=== PATIENT | male | born 1945 | race Caucasian/White ===

== ENCOUNTER 2017-06-08 16:18 | Emergency (ER) | payer MEDICARE, OTHER ==
--- NOTE | 2017-06-08 16:55 | ED ---
General Adult HPI - General Chief complaint: Psychiatric Symptoms Stated complaint: MENTAL HEALTH Time Seen by Provider: 06/08/17 16:36 Source: EMS, RN notes reviewed Mode of arrival: EMS Limitations: altered mental status - History of Present Illness Initial comments: 71-year-old male who is alert and oriented to person presents to the emergency department on a petition stating that he was trying to hurt himself and throwing himself to the ground. Kidney he denies any suicidal or homicidal ideation. Patient's story changes multiple times during the history. He denies any pain at this time. He denies any thoughts of hurting himself or anyone else. Patient denies any health concerns. Patient denies any recent fever, chills, shortness of breath, chest pain, back pain, abdominal pain, nausea vomiting, numbness or tingling, dysuria or hematuria, constipation or diarrhea, headaches or visual changes, or any other current symptoms. - Related Data Home Medications Medication Instructions Recorded Confirmed Albuterol Inhaler [Ventolin Hfa 2 puff INHALATION RT-BID 06/08/17 06/08/17 Inhaler] Albuterol Inhaler [Ventolin Hfa 2 puff INHALATION RT-Q4H PRN 06/08/17 06/08/17 Inhaler] Ativan 2mg/Ml Injection 1 mg IM Q8H PRN 06/08/17 06/08/17 Atorvastatin [Lipitor] 40 mg PO HS 06/08/17 06/08/17 Cetirizine HCl [Zyrtec] 10 mg PO DAILY 06/08/17 06/08/17 Diltiazem HCl [Cardizem Cd] 360 mg PO DAILY 06/08/17 06/08/17 Docusate [Colace] 100 mg PO BID PRN 06/08/17 06/08/17 Famotidine [Pepcid] 20 mg PO DAILY 06/08/17 06/08/17 Furosemide [Lasix] 20 mg PO DAILY 06/08/17 06/08/17 HYDROcodone/APAP 5-325MG [[place] 1 tab PO BID PRN 06/08/17 06/08/17 5-325] Heparin Sodium,Porcine [Heparin 5,000 unit SQ TID 06/08/17 06/08/17 Sodium] LORazepam [Ativan] 1 mg PO Q8H PRN 06/08/17 06/08/17 Lactulose 20 gm PO BID PRN 06/08/17 06/08/17 Megestrol [Megace] 40 mg PO DAILY 06/08/17 06/08/17 QUEtiapine FUMARATE [SEROquel] 12.5 mg PO HS 06/08/17 06/08/17 Sertraline [Zoloft] 50 mg PO HS 06/08/17 06/08/17 Sotalol [Betapace] 80 mg PO BID 06/08/17 06/08/17 Triamcinolone 0.1% Cream [Kenalog] 1 applicatio TOPICAL BID 06/08/17 06/08/17 levETIRAcetam [Keppra] 1,000 mg PO Q12HR 06/08/17 06/08/17 predniSONE 10 mg PO DAILY 06/08/17 06/08/17 Allergies Allergy/AdvReac Type Severity Reaction Status Date / Time No Known Allergies Allergy Verified 06/08/17 16:33 Review of Systems ROS Statement: Those systems with pertinent positive or pertinent negative responses have been documented in the HPI. ROS Other: All systems not noted in ROS Statement are negative. Past Medical History Past Medical History: Atrial Fibrillation, COPD, Hyperlipidemia, Hypertension, Osteoarthritis (OA) Additional Past Medical History / Comment(s): non-traumatic intracerebral hemorrhage, hemipeligia, foot drop History of Any Multi-Drug Resistant Organisms: Unobtainable Past Surgical History: Unable to Obtain Past Psychological History: Unable to Obtain Smoking Status: Unknown if ever smoked Past Alcohol Use History: Unable to Obtain Past Drug Use History: Unable to Obtain General Exam Limitations: altered mental status (however patient's baseline per EMS and retirement report) Head exam: Present: atraumatic, normocephalic, normal inspection ENT exam: Present: normal exam, mucous membranes moist Neck exam: Present: normal inspection Respiratory exam: Present: normal lung sounds bilaterally. Absent: respiratory distress, wheezes, rales, rhonchi, stridor Cardiovascular Exam: Present: regular rate, normal rhythm, normal heart sounds. Absent: systolic murmur, diastolic murmur, rubs, gallop, clicks Extremities exam: Present: normal inspection, full ROM, normal capillary refill. Absent: tenderness, pedal edema, joint swelling, calf tenderness Back exam: Present: normal inspection Neurological exam: Present: alert Psychiatric exam: Present: normal affect, normal mood Skin exam: Present: warm, dry, intact, normal color. Absent: rash Course Vital Signs 06/08/17 16:32 Temperature 97.4 F L Pulse Rate 55 L Respiratory 20 Rate Blood Pressure 180/80 O2 Sat by Pulse 91 L Oximetry Medical Decision Making - Medical Decision Making 71-year-old male presents on a petition stating he was trying to hurt himself. He denies any thoughts of this. This time the patient does not appear to be suffering from any acute medical emergencies. This time the patient is cleared to be evaluated by psychiatry. at this time patient was evaluated and they are in agreement with discharge back to the nursing facility. Patient continues to deny any suicidal or homicidal ideations. Patient does suffer from memory loss. This and we will discharge the patient. Family is in agreement with plan and comfortable. - Lab Data Result diagrams: 06/08/17 17:04 06/08/17 17:04 Lab Results 06/08/17 06/08/17 06/08/17 Range/Units 17:04 17:04 17:04 WBC 15.8 H (3.8-10.6) k/uL RBC 5.20 (4.30-5.90) m/uL Hgb 16.8 (13.0-17.5) gm/dL Hct 49.5 (39.0-53.0) % MCV 95.3 (80.0-100.0) fL MCH 32.3 (25.0-35.0) pg MCHC 33.9 (31.0-37.0) g/dL RDW 14.4 (11.5-15.5) % Plt Count 385 (150-450) k/uL Neutrophils % 81 % Lymphocytes % 11 % Monocytes % 6 % Eosinophils % 1 % Basophils % 0 % Neutrophils # 12.7 H (1.3-7.7) k/uL Lymphocytes # 1.8 (1.0-4.8) k/uL Monocytes # 0.9 (0-1.0) k/uL Eosinophils # 0.1 (0-0.7) k/uL Basophils # 0.1 (0-0.2) k/uL Sodium 142 (137-145) mmol/L Potassium 4.5 (3.5-5.1) mmol/L Chloride 108 H (98-107) mmol/L Carbon Dioxide 20 L (22-30) mmol/L Anion Gap 14 mmol/L BUN 31 H (9-20) mg/dL Creatinine 1.15 (0.66-1.25) mg/dL Est GFR (MDRD) Af Amer >60 (>60 ml/min/1.73 sqM) Est GFR (MDRD) Non-Af >60 (>60 ml/min/1.73 sqM) Glucose 129 H (74-99) mg/dL Calcium 9.6 (8.4-10.2) mg/dL Total Bilirubin 0.6 (0.2-1.3) mg/dL AST 50 (17-59) U/L ALT 146 H (21-72) U/L Alkaline Phosphatase 67 (38-126) U/L Total Protein 7.7 (6.3-8.2) g/dL Albumin 4.2 (3.5-5.0) g/dL Urine Color Yellow Urine Appearance Clear (Clear) Urine pH 5.0 (5.0-8.0) Ur Specific [place] 1.014 (1.001-1.035) Urine Protein Negative (Negative) Urine Glucose (UA) Negative (Negative) Urine Ketones Negative (Negative) Urine Blood Small H (Negative) Urine Nitrite Negative (Negative) Urine Bilirubin Negative (Negative) Urine Urobilinogen <2.0 (<2.0) mg/dL Ur Leukocyte Esterase Negative (Negative) Urine RBC 1 (0-5) /hpf Urine WBC 1 (0-5) /hpf Urine Bacteria Rare H (None) /hpf Urine Opiates Screen Detected H (NotDetected) Ur Oxycodone Screen Not Detected (NotDetected) Urine Methadone Screen Not Detected (NotDetected) Ur Propoxyphene Screen Not Detected (NotDetected) Ur Barbiturates Screen Not Detected (NotDetected) U Tricyclic Antidepress Not Detected (NotDetected) Ur Phencyclidine Scrn Not Detected (NotDetected) Ur Amphetamines Screen Not Detected (NotDetected) U Methamphetamines Scrn Not Detected (NotDetected) U Benzodiazepines Scrn Detected H (NotDetected) Urine Cocaine Screen Not Detected (NotDetected) U Marijuana (THC) Screen Not Detected (NotDetected) Disposition Clinical Impression: Depression, Memory impairment of gradual onset Disposition: HOME SELF-CARE Condition: Stable Instructions: Depression (ED) Additional Instructions: Please use medication as discussed. Please follow up with family doctor if symptoms have not improved over the next two days. Please return to the emergency room if your symptoms increase or worsen or for any other concerns. Referrals: Dex Sun MD [Primary Care Provider] - 1-2 days Time of Disposition: 20:14
[2017-06-08 17:16] LABS: Basophils # (A) 0.1 k/uL (0-0.2); Basophils % (A) 0 %; CH 33.5; CHCM 35.2; Eosinophils # (A) 0.1 k/uL (0-0.7); Eosinophils % (A) 1 %; HCT 49.5 % (39.0-53.0); HDW 2.29; HGB 16.8 gm/dL (13.0-17.5); Luc # (Auto) 0.24; Luc % (Auto) 2; Lymphocytes # (A) 1.8 k/uL (1.0-4.8); Lymphocytes % (A) 11 %; MCH 32.3 pg (25.0-35.0); MCHC 33.9 g/dL (31.0-37.0); MCV 95.3 fL (80.0-100.0); Mean Platelet Volume 7.6; Monocytes # (A) 0.9 k/uL (0-1.0); Monocytes % (A) 6 %; Neutrophils # (A) 12.7 k/uL (1.3-7.7); Neutrophils % (A) 81 %; RDW 14.4 % (11.5-15.5); WBC 15.8 k/uL (3.8-10.6); WBC (Perox) 15.85
[2017-06-08 17:21] LABS: Appearance,Urine Clear (Clear); Bacteria,Urine Rare /hpf; Bilirubin,Urine Negative (Negative); Glucose,Urine (UA) Negative (Negative); Ketones,Urine Negative (Negative); Leukocyte Esterase,Urine Negative (Negative); Nitrite,Urine Negative (Negative); Particle Count 1603; Protein,Urine Negative (Negative); RBC,Urine 1 /hpf (0-5); Specific Gravity,Urine 1.014 (1.001-1.035); UA Billing (MACRO vs. MICRO) MICRO; Urobilinogen,Urine <2.0 mg/dL (<2.0); WBC,Urine 1 /hpf (0-5)
[2017-06-08 17:23] LABS: ALT 146 U/L (21-72); AST 50 U/L (17-59); Alkaline Phosphatase 67 U/L (38-126); Anion Gap 14 mmol/L; Blood Urea Nitrogen 31 mg/dL (9-20); Calcium 9.6 mg/dL (8.4-10.2); Carbon Dioxide 20 mmol/L (22-30); Chloride 108 mmol/L (98-107); Glucose 129 mg/dL (74-99); Non-African American GFR(MDRD) >60 (>60 ml/min/1.73 sqM); Potassium 4.5 mmol/L (3.5-5.1); Sodium 142 mmol/L (137-145); Total Bilirubin 0.6 mg/dL (0.2-1.3); Total Protein 7.7 g/dL (6.3-8.2)
--- NOTE | 2017-06-08 18:19 | XR ---
EXAMINATION TYPE: XR chest 2V DATE OF EXAM: 06/08/2017 COMPARISON: NONE HISTORY: Cough TECHNIQUE: Frontal and lateral views of the chest are obtained. FINDINGS: There is no heart failure nor confluent pneumonic infiltrate. Heart size is normal. Thorac ic aorta is atheromatous. There is no pleural effusion. There are small linear density along the left major fissure. IMPRESSION: Mild pulmonary fibrosis. Old left-sided healed rib fractures. No acute lung disease.
[2017-06-08 20:51] VITALS: BP 170/68; PULSE 60; RESP 16; TEMP 97.3
== END 2017-06-08 20:51 | disposition home or self-care (01) ==
LOC: EC 16:18
DX: F32.9 Major depressive disorder, single episode, unspecified (principal); R41.3 Other amnesia; R41.82 Altered mental status, unspecified; E78.5 Hyperlipidemia, unspecified; I10 Essential (primary) hypertension; J44.9 Chronic obstructive pulmonary disease, unspecified; I48.91 Unspecified atrial fibrillation; M19.90 Unspecified osteoarthritis, unspecified site; Z79.01 Long term (current) use of anticoagulants; Z79.52 Long term (current) use of systemic steroids; Z79.899 Other long term (current) drug therapy
CPT/HCPCS: 36415; 71020; 80053; 80306; 81001; 82075; 85025; 99284

== ENCOUNTER 2017-07-03 10:41 | Emergency (ER) | payer MEDICARE, OTHER ==
[2017-07-03] MEDS ORDERED: SODIUM CHLORIDE 0.9% 1,000 ML IV ONE ×2 (10:46)
--- NOTE | 2017-07-03 10:53 | ED ---
Fall HPI - General Stated Complaint: Fall Time Seen by Provider: 07/03/17 10:41 Source: patient, EMS - History of Present Illness Initial Comments: This is a 71-year-old male who resides in a [facility] who has a history of dementia also a history of depression who has frequent falls who today fell out of his wheelchair face forward onto the floor. He sustained some abrasions to the left side of his forehead and scalp no reports of neck or back pain no focal loss of function. Patient does have a coma scale of 14 per EMS. No reports of fevers chills nausea vomiting sweats or other symptoms. The patient also complained of some right knee pain. MD Complaint: fall, other - Related Data Home Medications Medication Instructions Recorded Confirmed Albuterol Inhaler [Ventolin Hfa 2 puff INHALATION RT-BID@08,199906/08/1703/14 Inhaler] Albuterol Inhaler [Ventolin Hfa 2 puff INHALATION RT-Q4H PRN 06/08/17 07/03/17 Inhaler] Ativan 2mg/Ml Injection 1 mg IM Q8H PRN 06/08/17 07/03/17 Atorvastatin [Lipitor] 40 mg PO HS@2100 06/08/17 07/03/17 Cetirizine HCl [Zyrtec] 10 mg PO DAILY@89906/08/17 07/03/17 Diltiazem HCl [Cardizem Cd] 360 mg PO DAILY 06/08/17 07/03/17 Docusate [Colace] 100 mg PO BID PRN 06/08/17 07/03/17 Famotidine [Pepcid] 20 mg PO DAILY@0606/08/17 07/03/17 Furosemide [Lasix] 20 mg PO DAILY 06/08/17 07/03/17 HYDROcodone/APAP 5-325MG [[place] 1 tab PO BID PRN 06/08/17 07/03/17 5-325] LORazepam [Ativan] 1 mg PO Q8H PRN 06/08/17 07/03/17 Lactulose 20 gm PO BID PRN 06/08/17 07/03/17 QUEtiapine FUMARATE [SEROquel] 25 mg PO BID@0800,199906/08/17 07/03/17 Sotalol [Betapace] 80 mg PO BID@00,209906/08/17 07/03/17 levETIRAcetam [Keppra] 1,000 mg PO BID@0900,209906/08/17 07/03/17 Mirtazapine [Remeron] 15 mg PO HS@209907/03/17 07/03/17 Previous Rx's Medication Instructions Recorded Cephalexin [Keflex] 500 mg PO Q6HR #40 cap 07/03/17 Allergies Allergy/AdvReac Type Severity Reaction Status Date / Time No Known Allergies Allergy Verified 07/03/17 10:56 Review of Systems ROS Statement: Those systems with pertinent positive or pertinent negative responses have been documented in the HPI. ROS Other: All systems not noted in ROS Statement are negative. Past Medical History Past Medical History: Atrial Fibrillation, COPD, Hyperlipidemia, Hypertension, Osteoarthritis (OA) Additional Past Medical History / Comment(s): non-traumatic intracerebral hemorrhage, hemipeligia, foot drop History of Any Multi-Drug Resistant Organisms: Unobtainable Past Surgical History: Unable to Obtain Past Psychological History: Unable to Obtain Smoking Status: Unknown if ever smoked Past Alcohol Use History: Unable to Obtain Past Drug Use History: Unable to Obtain General Exam - General Exam Comments Initial Comments: A well-developed well-nourished awake alert somewhat lethargic male he does demonstrate abrasions to the left forehead and left frontal temporal scalp no step-off or crepitation no suture repair indicated. The patient does demonstrate a María Coma Scale of 14 Limitations: no limitations General appearance: alert, lethargic Head exam: Present: normocephalic, other (As above) Eye exam: Present: PERRL, EOMI ENT exam: Present: mucous membranes dry Neck exam: Present: normal inspection. Absent: tenderness, meningismus, lymphadenopathy Respiratory exam: Present: normal lung sounds bilaterally. Absent: respiratory distress, wheezes, rales, rhonchi, stridor Cardiovascular Exam: Present: regular rate, normal rhythm, normal heart sounds. Absent: systolic murmur, diastolic murmur, rubs, gallop, clicks GI/Abdominal exam: Present: soft, normal bowel sounds. Absent: distended, tenderness, guarding, rebound, rigid Rectal exam: Present: deferred Extremities exam: Present: full ROM, normal capillary refill, other (A healing scab over the left knee approximately 1.5 cm diameter no active bleeding no step -off or crepitation examination right knee reveals some mild tenderness palpation of the medial aspect the knee no step-off or crepitation.) Back exam: Present: normal inspection Neurological exam: Present: alert, oriented X3, CN II-XII intact Psychiatric exam: Present: normal mood, flat affect Skin exam: Present: warm, dry, normal color. Absent: rash Course Vital Signs 07/03/17 07/03/17 07/03/17 10:51 12:53 14:24 Temperature 99.6 F Pulse Rate 77 71 70 Respiratory 18 18 18 Rate Blood Pressure 125/69 117/63 122/69 O2 Sat by Pulse 89 L 92 L 95 Oximetry 07/03/17 15:17 Temperature 98.3 F Pulse Rate 70 Respiratory 16 Rate Blood Pressure 118/69 O2 Sat by Pulse 93 L Oximetry - Reevaluation(s) Reevaluation #1: 07/03/17 15:05 I proceed a [id number] evaluation the patient did discuss the findings with him and his . Patient does demonstrate epigastric pain to palpation. The findings are consistent with pancreatitis and cholelithiasis. I did discuss case with Dr. Colvin. Medical Decision Making - Medical Decision Making Patient will be discharged he'll be placed on oral antibiotics. - Lab Data Result diagrams: 07/03/17 12:57 07/03/17 12:57 Lab Results 07/03/17 07/03/17 07/03/17 Range/Units 11:02 12:57 12:57 WBC (3.8-10.6) k/uL RBC (4.30-5.90) m/uL Hgb (13.0-17.5) gm/dL Hct (39.0-53.0) % MCV (80.0-100.0) fL MCH (25.0-35.0) pg MCHC (31.0-37.0) g/dL RDW (11.5-15.5) % Plt Count (150-450) k/uL Neutrophils % % Lymphocytes % % Monocytes % % Eosinophils % % Basophils % % Neutrophils # (1.3-7.7) k/uL Lymphocytes # (1.0-4.8) k/uL Monocytes # (0-1.0) k/uL Eosinophils # (0-0.7) k/uL Basophils # (0-0.2) k/uL PT 11.4 (9.0-12.0) sec INR 1.1 (<1.2) APTT 23.4 (22.0-30.0) sec Sodium 141 (137-145) mmol/L Potassium 4.2 (3.5-5.1) mmol/L Chloride 109 H (98-107) mmol/L Carbon Dioxide 21 L (22-30) mmol/L Anion Gap 11 mmol/L BUN 21 H (9-20) mg/dL Creatinine 0.95 (0.66-1.25) mg/dL Est GFR (MDRD) Af Amer >60 (>60 ml/min/1.73 sqM) Est GFR (MDRD) Non-Af >60 (>60 ml/min/1.73 sqM) Glucose 80 (74-99) mg/dL Plasma Lactic Acid Paul (0.7-2.0) mmol/L Calcium 8.7 (8.4-10.2) mg/dL Magnesium 2.0 (1.6-2.3) mg/dL Total Bilirubin 1.4 H (0.2-1.3) mg/dL AST 54 (17-59) U/L ALT 75 H (21-72) U/L Alkaline Phosphatase 80 (38-126) U/L Ammonia (<30) umol/L Total Protein 6.5 (6.3-8.2) g/dL Albumin 3.3 L (3.5-5.0) g/dL Urine Color Yellow Urine Appearance Clear (Clear) Urine pH 6.0 (5.0-8.0) Ur Specific [place] 1.020 (1.001-1.035) Urine Protein 1+ H (Negative) Urine Glucose (UA) Negative (Negative) Urine Ketones Negative (Negative) Urine Blood Moderate H (Negative) Urine Nitrite Positive (Negative) Urine Bilirubin Negative (Negative) Urine Urobilinogen 2.0 (<2.0) mg/dL Ur Leukocyte Esterase Trace H (Negative) Urine RBC 2 (0-5) /hpf Urine WBC 4 (0-5) /hpf Urine Bacteria Rare H (None) /hpf Urine Mucus Rare H (None) /hpf 07/03/17 07/03/17 07/03/17 Range/Units 12:57 12:57 15:14 WBC 11.3 H (3.8-10.6) k/uL RBC 3.82 L (4.30-5.90) m/uL Hgb 12.5 L D (13.0-17.5) gm/dL Hct 37.6 L (39.0-53.0) % MCV 98.4 (80.0-100.0) fL MCH 32.7 (25.0-35.0) pg MCHC 33.2 (31.0-37.0) g/dL RDW 13.2 (11.5-15.5) % Plt Count 323 (150-450) k/uL Neutrophils % 75 % Lymphocytes % 10 % Monocytes % 9 % Eosinophils % 4 % Basophils % 1 % Neutrophils # 8.5 H (1.3-7.7) k/uL Lymphocytes # 1.1 (1.0-4.8) k/uL Monocytes # 1.0 (0-1.0) k/uL Eosinophils # 0.4 (0-0.7) k/uL Basophils # 0.1 (0-0.2) k/uL PT (9.0-12.0) sec INR (<1.2) APTT (22.0-30.0) sec Sodium (137-145) mmol/L Potassium (3.5-5.1) mmol/L Chloride (98-107) mmol/L Carbon Dioxide (22-30) mmol/L Anion Gap mmol/L BUN (9-20) mg/dL Creatinine (0.66-1.25) mg/dL Est GFR (MDRD) Af Amer (>60 ml/min/1.73 sqM) Est GFR (MDRD) Non-Af (>60 ml/min/1.73 sqM) Glucose (74-99) mg/dL Plasma Lactic Acid Paul 1.5 (0.7-2.0) mmol/L Calcium (8.4-10.2) mg/dL Magnesium (1.6-2.3) mg/dL Total Bilirubin (0.2-1.3) mg/dL AST (17-59) U/L ALT (21-72) U/L Alkaline Phosphatase (38-126) U/L Ammonia <9 (<30) umol/L Total Protein (6.3-8.2) g/dL Albumin (3.5-5.0) g/dL Urine Color Urine Appearance (Clear) Urine pH (5.0-8.0) Ur Specific [place] (1.001-1.035) Urine Protein (Negative) Urine Glucose (UA) (Negative) Urine Ketones (Negative) Urine Blood (Negative) Urine Nitrite (Negative) Urine Bilirubin (Negative) Urine Urobilinogen (<2.0) mg/dL Ur Leukocyte Esterase (Negative) Urine RBC (0-5) /hpf Urine WBC (0-5) /hpf Urine Bacteria (None) /hpf Urine Mucus (None) /hpf - EKG Data -: EKG Interpreted by Me (Accelerated junctional rhythm a lot of artifact rate was 72 QRS 74 daily si) - Radiology Data Radiology results: report reviewed (I did review the imaging and reports no acute findings.), image reviewed Disposition Clinical Impression: Fall, Urinary tract infection, Dehydration, Memory impairment of gradual onset Disposition: HOME SELF-CARE Condition: Good Instructions: Fall Prevention for Older Adults (ED), Dehydration (ED), Urinary Tract Infection in Men (ED) Prescriptions: Cephalexin [Keflex] 500 mg PO Q6HR #40 cap Referrals: Dex Sun MD [Primary Care Provider] - 1-2 days
[2017-07-03 11:43] LABS: Appearance,Urine Clear (Clear); Bacteria,Urine Rare /hpf; Bilirubin,Urine Negative (Negative); Glucose,Urine (UA) Negative (Negative); Ketones,Urine Negative (Negative); Leukocyte Esterase,Urine Trace (Negative); Mucus,Urine Rare /hpf; Nitrite,Urine Positive (Negative); Particle Count 4349; Protein,Urine 1+ (Negative); RBC,Urine 2 /hpf (0-5); UA Billing (MACRO vs. MICRO) MICRO; WBC,Urine 4 /hpf (0-5)
[2017-07-03 13:15] LABS: Basophils # (A) 0.1 k/uL (0-0.2); Basophils % (A) 1 %; CH 32.3; CHCM 32.9; Eosinophils # (A) 0.4 k/uL (0-0.7); Eosinophils % (A) 4 %; HCT 37.6 % (39.0-53.0); HDW 2.71; Luc # (Auto) 0.16; Luc % (Auto) 1; Lymphocytes # (A) 1.1 k/uL (1.0-4.8); Lymphocytes % (A) 10 %; MCH 32.7 pg (25.0-35.0); MCHC 33.2 g/dL (31.0-37.0); MCV 98.4 fL (80.0-100.0); Mean Platelet Volume 7.8; Monocytes % (A) 9 %; Neutrophils # (A) 8.5 k/uL (1.3-7.7); Neutrophils % (A) 75 %; RBC 3.82 m/uL (4.30-5.90); RDW 13.2 % (11.5-15.5); WBC 11.3 k/uL (3.8-10.6); WBC (Perox) 12.12
[2017-07-03 13:18] LABS: ALT 75 U/L (21-72); AST 54 U/L (17-59); Alkaline Phosphatase 80 U/L (38-126); Anion Gap 11 mmol/L; Blood Urea Nitrogen 21 mg/dL (9-20); Calcium 8.7 mg/dL (8.4-10.2); Carbon Dioxide 21 mmol/L (22-30); Chloride 109 mmol/L (98-107); Glucose 80 mg/dL (74-99); Non-African American GFR(MDRD) >60 (>60 ml/min/1.73 sqM); Potassium 4.2 mmol/L (3.5-5.1); Sodium 141 mmol/L (137-145); Total Bilirubin 1.4 mg/dL (0.2-1.3); Total Protein 6.5 g/dL (6.3-8.2)
[2017-07-03 13:21] LABS: HGB 12.5 gm/dL (13.0-17.5)
[2017-07-03 13:22] LABS: INR 1.1 (<1.2); Partial Thromboplastin Time 23.4 sec (22.0-30.0); Prothrombin Time 11.4 sec (9.0-12.0)
--- NOTE | 2017-07-03 13:46 | CT ---
EXAMINATION TYPE: CT brain elza rubi DATE OF EXAM: 07/03/2017 COMPARISON: NONE HISTORY: Patient poor historian. Patient fell off of ski lift 1 to [address] DLP: 1090.[address] of the brain was performed. The ventricles, basal cisterns and sulci overlying the cerebral convexities demonstrate moderate enla rgement. There is no evidence for intracranial hemorrhage or sulcal effacement. There is decreased attenuatio n about the periventricular white matter and deep white matter of both cerebral hemispheres, compatib le with chronic small vessel ischemia. No mass effects are seen. If symptoms persist consider MRI. Right parietal craniotomy changes with underlying postoperative encephalomalacia. Bifrontal cristal hole s. Mild streak artifact. IMPRESSION: 1. Age related atrophic and chronic small vessel ischemic change without acute intracranial process seen at this time. Postoperative changes as discussed. CT Cervical Spine: Unenhanced CT of the cervical spine was performed with bone and soft tissue window settings submitted . Coronal and sagittal reconstruction is obtained. There is normal alignment and prevertebral soft tissues. No evidence for acute cervical fracture . Co ngenital fusion of C5 and C6. Scattered degenerative disc disease and spondylosis. Biapical scarring . IMPRESSION: 1. No evidence for acute fracture or subluxation of the cervical spine.
--- NOTE | 2017-07-03 13:49 | XR ---
EXAMINATION TYPE: XR chest 2V DATE OF EXAM: 07/03/2017 COMPARISON: NONE HISTORY: Shortness of breath TECHNIQUE: Frontal and lateral views of the chest are obtained. FINDINGS: Scattered senescent parenchymal changes noted. Hyperinflation compatible with COPD. No evidence for infiltrate. No evidence for atelectasis. Heart size is stable. Mediastinal structures are stable and grossly unremarkable. No evidence for hilar prominence. Degenerative changes dorsal spine. IMPRESSION: 1. No evidence for acute pulmonary disease.
--- NOTE | 2017-07-03 13:50 | XR ---
EXAMINATION TYPE: XR knee complete RT DATE OF EXAM: 07/03/2017 CLINICAL HISTORY: pain TECHNIQUE: Three views of the right knee are obtained. COMPARISON: None. FINDINGS: There is no acute fracture/dislocation. Moderate degenerative narrowing. The overlying sof t tissue appears unremarkable. IMPRESSION: There is no acute fracture or dislocation.ICD 10 NO FRACTURE, INITIAL EVALUATION
[2017-07-03 14:25] VITALS: PULSE 70
[2017-07-03] MEDS ORDERED: ceFAZolin 1,000 MG in DEXTROSE/WATER 1 50ML.BAG IVPB STA (14:37)
[2017-07-03 15:18] VITALS: RESP 16
[2017-07-03 17:36] VITALS: BP 121/71; TEMP 98
== END 2017-07-03 17:25 | disposition home or self-care (01) ==
LOC: EC 10:41
DX: N39.0 Urinary tract infection, site not specified (principal); E86.0 Dehydration; R41.3 Other amnesia; R40.2412 Glasgow coma scale score 13-15, at arrival to emergency department; R29.6 Repeated falls; S00.81XA Abrasion of other part of head, initial encounter; S00.01XA Abrasion of scalp, initial encounter; M25.561 Pain in right knee; F03.90 Unspecified dementia, unspecified severity, without behavioral disturbance, psychotic disturbance, mood disturbance, and anxiety; F32.9 Major depressive disorder, single episode, unspecified; I48.91 Unspecified atrial fibrillation; J44.9 Chronic obstructive pulmonary disease, unspecified; E78.5 Hyperlipidemia, unspecified; I10 Essential (primary) hypertension; Z79.899 Other long term (current) drug therapy; W05.0XXA Fall from non-moving wheelchair, initial encounter
CPT/HCPCS: 99285 ×2; 96365 ×2; 96361 ×4; 36415; 93005; 80053; 82140; 83605; 83735; 85025; 85610; 85730; 81001; 87040; 87086; 87077; 87186; 71020; 73562; 72125; 70450; J0690